=== PATIENT | female | born 1945 | race Caucasian/White ===

== ENCOUNTER → 2021-07-09 | Outpatient (CLI) | payer OTHER | LOC: HEART CORB 10:51 | DX: I50.813 Acute on chronic right heart failure (principal); I08.3 Combined rheumatic disorders of mitral, aortic and tricuspid valves; I27.20 Pulmonary hypertension, unspecified; Z95.9 Presence of cardiac and vascular implant and graft, unspecified | CPT/HCPCS: 93306 ==